=== PATIENT | female | born 1970 | race Caucasian/White ===

== ENCOUNTER 2017-04-15 13:05 | Emergency (ER) | payer BC, OTHER ==
[2017-04-15] MEDS: SOD CHLORIDE 0.9% 1,000 ML IV ×2 (13:32→14:08)
[2017-04-15 13:49] LABS: ADD MAN DIFF? NO
[2017-04-15] MEDS: ASPIRIN 325 MG TAB PO (14:04)
[2017-04-15 14:12] LABS: ALANINE AMINOTRANSFERASE 28 IU/L (13-69); ALBUMIN 4.7 g/dl (3.3-4.9); ALBUMIN/GLOBULIN RATIO 1.62; ALKALINE PHOSPHATASE 75 IU/L (42-121); ANION GAP 17 (8-16); ASPARTATE AMINO TRANSFERASE 26 IU/L (15-46); BILIRUBIN,INDIRECT 0.4 mg/dl (0-1.1); BILIRUBIN,TOTAL 0.4 mg/dl (0.2-1.3); BLOOD UREA NITROGEN 18 mg/dl (7-20); CALCIUM 9.3 mg/dl (8.4-10.2); CARBON DIOXIDE 25 mmol/L (21-31); CHLORIDE 102 mmol/L (97-110); CREATININE 0.68 mg/dl (0.44-1.00); GLUCOSE 104 mg/dl (70-220); INR 1.04; PARTIAL THROMBOPLASTIN TIME 33.5 Sec (25.0-35.0); POTASSIUM 3.2 mmol/L (3.5-5.1); PROTIME 13.7 Sec (11.9-14.9); PT RATIO 1.1; SODIUM 141 mmol/L (135-144); TOTAL PROTEIN 7.6 g/dl (6.1-8.1)
[2017-04-15 14:14] LABS: WHITE BLOOD COUNT 9.6 10^3/ul (4.8-10.8)
[2017-04-15 14:14] LABS: ABNORMAL IP MESSAGE 1; BASOPHIL # 0.1 10^3/ul (0.0-0.1); BASOPHILS % 0.5 % (0.0-2.0); EOSINOPHILS # 0.2 10^3/ul (0.0-0.5); EOSINOPHILS % 1.9 % (0.0-7.0); HEMATOCRIT 39.5 % (37.0-47.0); HEMOGLOBIN 13.5 g/dl (12.0-16.0); LYMPHOCYTES # 1.5 10^3/ul (0.8-2.9); LYMPHOCYTES % 15.1 % (15.0-51.0); MEAN CORPUSCULAR HEMOGLOBIN 31.3 pg (29.0-33.0); MEAN CORPUSCULAR HGB CONC 34.2 g/dl (32.0-37.0); MEAN CORPUSCULAR VOLUME 91.4 fl (82.0-101.0); MEAN PLATELET VOLUME 10.9 fl (7.4-10.4); MONOCYTE # 0.6 10^3/ul (0.3-0.9); MONOCYTES % 6.3 % (0.0-11.0); NEUTROPHIL # 7.3 10^3/ul (1.6-7.5); NEUTROPHILS % 75.9 % (39.0-77.0); RED BLOOD COUNT 4.32 10^6/ul (4.20-5.40); RED CELL DISTRIBUTION WIDTH 12.5 % (11.5-14.5)
[2017-04-15 14:15] LABS: POSITIVE DIFF @See below
[2017-04-15 14:19] LABS: PLATELET COUNT 145 10^3/UL (140-415)
[2017-04-15 14:32] LABS: TROPONIN-I < 0.012 ng/ml (0.00-0.12)
[2017-04-15] MEDS: METHYLPREDNISOLONE 500 MG INJ IM (16:46)
== END 2017-04-15 17:14 | disposition home or self-care (01) ==
LOC: E/R 13:05
DX: G51.0 Bell's palsy (principal); I10 Essential (primary) hypertension; R07.9 Chest pain, unspecified
CPT/HCPCS: 36415; 70450; 71045; 80053; 84484; 85025; 85610; 85730; 93005; 96372; 99285-25